=== PATIENT | female | born 1955 | race Caucasian/White ===

== ENCOUNTER → 2017-02-24 | Outpatient (CLI) | payer BC ==
--- NOTE | 2017-02-24 14:32 | KCIC ---
DATE: DATE: 02/24/2017 EXAM: MAMMO NAM SCREENING BILATERAL HISTORY: Screening. The history of left breast malignancy is noted COMPARISON: 01/30/2016 FINDINGS: Breast Density: SCATTERED The breast parenchyma shows scattered fibroglandular densities. Breast parenchyma level B. There is not been a significant change in the appearance of the breasts compared to the previous exam. Post therapeutic changes are noted associated with the left breast. IMPRESSION: Benign findings BI-RADS CATEGORY: 2 BENIGN FINDING(S) RECOMMENDED FOLLOW-UP: 12M 12 MONTH FOLLOW-UP PQRS compliance statement: Patient information was entered into a reminder system with a target due date 02/24/2018 for the next mammogram. Mammography is a sensitive method for finding small breast cancers, but it does not detect them all and is not a substitute for careful clinical examination. A negative mammogram does not negate a clinically suspicious finding and should not result in delay in biopsying a clinically suspicious abnormality. "Our facility is accredited by the [employer]ammography [employer]." RAJAN
== END | disposition home or self-care (01) ==
LOC: KCIC MAMMO 08:30
PROVIDERS: ATTEND Family Medicine
DX: Z12.31 Encounter for screening mammogram for malignant neoplasm of breast (principal); Z85.3 Personal history of malignant neoplasm of breast
CPT/HCPCS: 77063; G0202; 77067

== ENCOUNTER → 2018-03-31 | Outpatient (CLI) | payer BC ==
--- NOTE | 2018-03-31 12:28 | KCIC ---
Bilateral digital screening mammograms: Reason for examination: Routine screening. History of left breast cancer with lumpectomy and chemotherapy. Comparison is made to previous studies dated 02/24/2017 and 01/30/2016. Interpretation was made with the benefit of CAD. The skin and nipples show no abnormalities. No abnormal axillary lymph nodes are seen. The breast parenchyma shows scattered fibroglandular density. (Breast density: Category B.) There are postop changes in the left breast. There are no new dominant masses, suspicious calcifications or architectural distortions. Some benign calcifications are present. Impression: Postoperative changes in the left breast. No evidence of new or recurrent malignancy. Recommend routine screening. BI-RADS category 2: Benign "Our facility is accredited by the [employer] Mammography Program." This patient's information has been entered into a reminder system for the patient to be notified with the results of her examination and a target date for the next mammogram. Electronically signed by: Nabila Fajardo MD (03/31/2018 12:25 PM) [facility]
== END | disposition home or self-care (01) ==
LOC: KCIC MAMMO 07:53
PROVIDERS: ATTEND Family Medicine
DX: Z12.31 Encounter for screening mammogram for malignant neoplasm of breast (principal); Z85.3 Personal history of malignant neoplasm of breast; Z98.890 Other specified postprocedural states
CPT/HCPCS: 77067

== ENCOUNTER 2018-12-07 22:37 | Emergency (ER) | payer BC ==
[~2018-12-07] VITALS: Ht 154.9 cm; Wt 68.0 kg
--- NOTE | 2018-12-07 23:03 | PHYS DOC ---
Adult General Chief Complaint Chief Complaint: NAUSEA/VOMITING/DIARRHA HPI HPI Patient is a 63 year old female who presents to the ED today with multiple complaints. Patient states yesterday she had "bad lettuce" from [employer] she states she developed diarrhea and vomiting after that. She states she's continued to have diarrhea and vomiting until to day though it has slowed down this since this afternoon. She states she also accidentally took her husbands restless leg syndrome medicine Pramipexole last night. She is also complaining of a frontal headache rated at 8 out of 10 described as throbbing and constant since this morning worse with lights and noise she states she thinks it is a sinus headache but denies any nasal congestion, she states she has had similar headaches before but not as bad. She states her current symptoms are making her vertigo worse. Review of Systems Review of Systems Constitutional: Denies fever or chills [] Eyes: Denies change in visual acuity, redness, or eye pain [] HENT: Denies nasal congestion or sore throat [] Respiratory: Denies cough or shortness of breath [] Cardiovascular: No additional information not addressed in HPI [] GI: Reports nausea, vomiting,and diarrhea denies abdominal pain, : Denies dysuria or hematuria [] Musculoskeletal: Denies back pain or joint pain [] Integument: Denies rash or skin lesions [] Neurologic:Reports headache, denies focal weakness or sensory changes [] All other systems were reviewed and found to be within normal limits, except as documented in this note. Current Medications Current Medications Current Medications Medications (Trade) Dose Ordered Sig/Renata Start Time Stop Time Status Last Admin Dose Admin Dicyclomine HCl (Bentyl) 20 mg 1X ONCE 12/07/18 23:15 12/07/18 23:16 DC 12/07/18 23:33 20 MG Diphenhydramine HCl (Benadryl) 25 mg 1X ONCE 12/07/18 23:15 12/07/18 23:16 DC 12/07/18 23:33 25 MG Famotidine (Pepcid Vial) 20 mg 1X ONCE 12/07/18 23:15 12/07/18 23:16 DC 12/07/18 23:26 20 MG Info (CONTRAST GIVEN -- Rx MONITORING) 1 each PRN DAILY PRN 12/07/18 23:55 12/09/18 23:54 Iohexol (Omnipaque 300 Mg/ml) 75 ml 1X ONCE 12/07/18 23:55 12/07/18 23:56 DC 12/08/18 00:14 75 ML Meclizine HCl (Antivert) 25 mg 1X ONCE 12/07/18 23:15 12/07/18 23:16 DC 12/07/18 23:26 25 MG Methylprednisolone Sodium Succinate (SOLU-Medrol 125MG VIAL) 125 mg 1X ONCE 12/07/18 23:15 12/07/18 23:16 DC 12/07/18 23:31 125 MG Prochlorperazine Edisylate (Compazine) 10 mg 1X ONCE 12/07/18 23:15 12/07/18 23:16 DC 12/07/18 23:29 10 MG Sodium Chloride 1,000 ml @ 1,000 mls/hr 1X ONCE 12/07/18 23:15 12/08/18 00:14 DC 12/07/18 23:22 1,000 MLS/HR Allergies Allergies Allergies Coded Allergies Type Severity Reaction Last Updated Verified No Known Drug Allergies 12/07/18 No Physical Exam Physical Exam Constitutional: Well developed, well nourished, no acute distress, non-toxic appearance. [] HENT: Normocephalic, atraumatic, bilateral external ears normal, oropharynx moist, no oral exudates, nose normal. [] Eyes: PERRLA, EOMI, conjunctiva normal, no discharge. [] Neck: Normal range of motion, no tenderness, supple, no stridor. [] Cardiovascular:Heart rate regular rhythm, no murmur [] Lungs & Thorax: Bilateral breath sounds clear to auscultation [] Abdomen: Bowel sounds normal, soft, no tenderness, no masses, no pulsatile masses. [] Skin: Warm, dry, no erythema, no rash. [] Back: No tenderness, no CVA tenderness. [] Extremities: No tenderness, no cyanosis, no clubbing, ROM intact, no edema. [] Neurologic: Alert and oriented X 3, normal motor function, normal sensory function, no focal deficits noted. Cranial nerves II-XII intact. Psychologic: Affect normal, judgement normal, mood normal. [] Current Patient Data Vital Signs Vital Signs Date Time Temp Pulse Resp B/P (MAP) Pulse Ox O2 Delivery O2 Flow Rate FiO2 12/07/18 22:50 98.4 84 18 156/81 (106) 98 Room Air 98.4 Lab Values Laboratory Tests Test 12/07/18 23:10 White Blood Count 6.5 x10^3/uL (4.0-11.0) Red Blood Count 4.44 x10^6/uL (3.50-5.40) Hemoglobin 13.7 g/dL (12.0-15.5) Hematocrit 39.4 % (36.0-47.0) Mean Corpuscular Volume 89 fL (79-100) Mean Corpuscular Hemoglobin 31 pg (25-35) Mean Corpuscular Hemoglobin Concent 35 g/dL (31-37) Red Cell Distribution Width 14.1 % (11.5-14.5) Platelet Count 166 x10^3/uL (140-400) Neutrophils (%) (Auto) 83 % (31-73) H Lymphocytes (%) (Auto) 11 % (24-48) L Monocytes (%) (Auto) 6 % (0-9) Eosinophils (%) (Auto) 0 % (0-3) Basophils (%) (Auto) 1 % (0-3) Neutrophils # (Auto) 5.4 x10^3uL (1.8-7.7) Lymphocytes # (Auto) 0.7 x10^3/uL (1.0-4.8) L Monocytes # (Auto) 0.4 x10^3/uL (0.0-1.1) Eosinophils # (Auto) 0.0 x10^3/uL (0.0-0.7) Basophils # (Auto) 0.0 x10^3/uL (0.0-0.2) Sodium Level 138 mmol/L (136-145) Potassium Level 3.9 mmol/L (3.5-5.1) Chloride Level 101 mmol/L (98-107) Carbon Dioxide Level 25 mmol/L (21-32) Anion Gap 12 (6-14) Blood Urea Nitrogen 14 mg/dL (7-20) Creatinine 0.7 mg/dL (0.6-1.0) Estimated GFR (Cockcroft-Gault) 85.1 BUN/Creatinine Ratio 20 (6-20) Glucose Level 136 mg/dL (70-99) H Calcium Level 9.4 mg/dL (8.5-10.1) Magnesium Level 2.1 mg/dL (1.8-2.4) Total Bilirubin 0.5 mg/dL (0.2-1.0) Aspartate Amino Transferase (AST) 32 U/L (15-37) Alanine Aminotransferase (ALT) 30 U/L (14-59) Alkaline Phosphatase 73 U/L (46-116) Creatine Kinase 123 U/L (26-192) Creatine Kinase MB (Mass) 1.1 ng/mL (0.0-3.6) Creatine Kinase MB Relative Index 0.9 % (0-4) Troponin I Quantitative < 0.017 ng/mL (0.000-0.055) SH-Bed-D-Type Natriuretic Peptide 484 pg/mL (0-124) H Total Protein 7.8 g/dL (6.4-8.2) Albumin 3.6 g/dL (3.4-5.0) Albumin/Globulin Ratio 0.9 (1.0-1.7) L Lipase 186 U/L (73-393) Thyroid Stimulating Hormone (TSH) 0.400 uIU/mL (0.358-3.74) Laboratory Tests 12/07/18 23:10 Laboratory Tests 12/07/18 23:10 EKG EKG 23:[address] Kaylie burks sinus rhythm heart rate 66 no STEMI Radiology/Procedures Radiology/Procedures []PROCEDURE: CT ABD PELV W/ IV CONTRST ONLY EXAM: CT Abdomen and Pelvis with IV contrast CLINICAL HISTORY: Dizziness . COMPARISON: none TECHNIQUE: Helical CT of the abdomen and pelvis was performed following the administration of intravenous contrast. Axial, coronal and sagittal reformatted images were generated. PQRS compliance statement - One or more of the following individualized dose reduction techniques were utilized for this study: 1. Automated exposure control 2. Adjustment of the mA and/or kV according to patient size 3. Use of iterative reconstruction technique FINDINGS: Lower chest: Linear opacities in the medial middle lobe likely scarring/atelectasis. Abdomen and Pelvis: No focal liver lesion. There has been a cholecystectomy. No biliary ductal dilatation. Pancreas is unremarkable. Spleen is normal in appearance. Symmetric nephrograms. Bilateral extrarenal pelvis. No hydronephrosis or hydroureter. Bladder is unremarkable. No small or large bowel dilatation. No evidence for bowel obstruction. Bladder is unremarkable. There has been a hysterectomy. No abdominal pelvic ascites. No abdominal pelvic lymphadenopathy. Bones: Degenerative changes of spine are seen. IMPRESSION: There has been a cholecystectomy. No biliary ductal dilatation. No evidence for bowel obstruction. Electronically signed by: Antonio Crump MD (12/08/2018 12:36 AM) [facility] DICTATED and SIGNED BY: ANTONIO CRUMP MD DATE: 12/08/18 0036 PROCEDURE: PORTABLE CHEST 1V AP portable chest radiograph 12/07/2018 Clinical History: Dizziness. An AP erect portable digital radiograph of the chest was obtained. Surgical clips overlie the left axilla. The cardiac silhouette is mildly enlarged. The thoracic aorta is mildly tortuous. No acute pulmonary infiltrate is seen. No pleural effusion or pneumothorax is noted. Degenerative changes are seen involving the thoracic spine and both shoulders. IMPRESSION: No acute abnormality is seen. Electronically signed by: Abdirizak Becerra MD (12/07/2018 11:45 PM) [facility] DICTATED and SIGNED BY: ABDIRIZAK BECERRA MD DATE: 12/07/18 2345 PROCEDURE: CT HEAD WO CONTRAST EXAM: CT Head without IV contrast CLINICAL HISTORY: Dizziness COMPARISON: None. TECHNIQUE: Routine CT of the head without contrast. Soft tissues and bone windows were reviewed. PQRS compliance statement - One or more of the following individualized dose reduction techniques were utilized for this study: 1. Automated exposure control 2. Adjustment of the mA and/or kV according to patient size 3. Use of iterative reconstruction technique FINDINGS: There is no evidence of hemorrhage, mass or extra-axial fluid collection. Forte-white differentiation is maintained with no evidence of edema. There is no mass effect or shift of the intracranial structures. The ventricles, basilar cisterns and cortical sulci are normal in size and configuration for the patients stated age. The cerebellum and brainstem are unremarkable. The calvarium demonstrates no evidence of fracture or focal lesion. There is normal aeration of the visualized paranasal sinuses and mastoid air cells. The visualized portions of the orbits are normal. Atherosclerotic calcifications of the intracranial internal carotid arteries is seen. IMPRESSION: No evidence for acute intracranial process Electronically signed by: Antonio Crump MD (12/08/2018 12:26 AM) [facility] DICTATED and SIGNED BY: ANTONIO CRUMP MD DATE: 12/08/18 0026 Course & Med Decision Making Course & Med Decision Making Pertinent Labs and Imaging studies reviewed. (See chart for details) This is a 63-year-old female patient presenting to the ED today complaining of nausea, vomiting, diarrhea that began last night after having bad lettuce. Also complaining of a headache since this morning and accidentally taking her husba nds Pramipexole last night. Has hx of Vertigo EKG is negative. Labs are negative, CT of the head, abdomen and pelvic are negative. IV fluids given, meclizine, feeling better. D/c to home. F/u with PCP next week. Dragon Disclaimer Dragon Disclaimer This electronic medical record was generated, in whole or in part, using a voice recognition dictation system. Departure Departure Impression: Primary Impression: Headache Additional Impressions: Nausea & vomiting Diarrhea Disposition: HOME, SELF-CARE Condition: STABLE Referrals: DIOR HARDWICK MD (PCP) follow up next week Patient Instructions: Diarrhea, [id number], Headache, FAQs, Nausea and Vomiting, [id number] Additional Instructions: You were seen for headache, nausea, vomiting, diarrhea your work up was negative for any acute findings. Please push fluids. Follow up with your doctor next week. Scripts Ondansetron Hcl (ZOFRAN) 4 Mg Tablet 1 TAB PO Q6HRS, #20 TAB Prov: JHONATAN MEJIA APRN 12/08/18 Problem Qualifiers Primary Impression: Headache Headache type: unspecified Headache chronicity pattern: acute headache Intractability: not intractable Qualified Codes: R51 - Headache Additional Impressions: Nausea & vomiting Vomiting type: unspecified Vomiting Intractability: unspecified Qualified Codes: R11.2 - Nausea with vomiting, unspecified Diarrhea Diarrhea type: unspecified type Qualified Codes: R19.7 - Diarrhea, unspecified JHONATAN MEJIA APRN Dec 07, 2018 23:03
[2018-12-07] MEDS ORDERED: IV NORMAL SALINE 1000ML BAG 1,000 ML IV ONE (23:15)
[2018-12-07] MEDS ORDERED: diphenhydrAMINE HCL 25 MG CAPSULE PO ONE (23:15)
[2018-12-07] MEDS ORDERED: methylPREDNISolone SOD SUCC PF 125 MG/2 ML VIAL. IV ONE (23:15)
[2018-12-07] MEDS ORDERED: MECLIZINE HCL 12.5 MG TABLET. PO ONE (23:15)
[2018-12-07] MEDS ORDERED: FAMOTIDINE 20 MG/2 ML VIAL IVP ONE (23:15)
[2018-12-07] MEDS ORDERED: PROCHLORPERAZINE 10 MG/2 ML VIAL. IV ONE (23:15)
[2018-12-07] MEDS ORDERED: DICYCLOMINE HCL 10 MG CAPSULE PO ONE (23:15)
[2018-12-07 23:22] LABS: BASO % 1 % (0-3); EOS % 0 % (0-3); HEMATOCRIT 39.4 % (36.0-47.0); HEMOGLOBIN 13.7 g/dL (12.0-15.5); LYMPH # 0.7 x10^3/uL (1.0-4.8); LYMPH % 11 % (24-48); MEAN CORPUSCULAR HEMOGLOBIN 31 pg (25-35); MEAN CORPUSCULAR HGB CONC 35 g/dL (31-37); MEAN CORPUSCULAR VOLUME 89 fL (79-100); MONO # 0.4 x10^3/uL (0.0-1.1); MONO % 6 % (0-9); NEUT # 5.4 x10^3uL (1.8-7.7); NEUT % 83 % (31-73); PLATELET COUNT 166 x10^3/uL (140-400); RED BLOOD COUNT 4.44 x10^6/uL (3.50-5.40); RED CELL DISTRIBUTION WIDTH 14.1 % (11.5-14.5); WHITE BLOOD COUNT 6.5 x10^3/uL (4.0-11.0)
[2018-12-07 23:35] LABS: CALCIUM 9.4 mg/dL (8.5-10.1); CREATININE 0.7 mg/dL (0.6-1.0); GFR 85.1; POTASSIUM 3.9 mmol/L (3.5-5.1)
[2018-12-07 23:38] LABS: ALBUMIN 3.6 g/dL (3.4-5.0); ALBUMIN/GLOBULIN RATIO 0.9 (1.0-1.7); MAGNESIUM 2.1 mg/dL (1.8-2.4); TOTAL BILIRUBIN 0.5 mg/dL (0.2-1.0); TOTAL PROTEIN 7.8 g/dL (6.4-8.2)
--- NOTE | 2018-12-07 23:48 | RAD ---
AP portable chest radiograph 12/07/2018 Clinical History: Dizziness. An AP erect portable digital radiograph of the chest was obtained. Surgical clips overlie the left axilla. The cardiac silhouette is mildly enlarged. The thoracic aorta is mildly tortuous. No acute pulmonary infiltrate is seen. No pleural effusion or pneumothorax is noted. Degenerative changes are seen involving the thoracic spine and both shoulders. IMPRESSION: No acute abnormality is seen. Electronically signed by: Abdirizak Becerra MD (12/07/2018 11:45 PM) [facility]
[2018-12-07] MEDS ORDERED: CONTRAST GIVEN. MC PRN (23:55)
[2018-12-07] MEDS ORDERED: IOHEXOL 300 MG/ML 100ML VIAL. IV ONE (23:55)
--- NOTE | 2018-12-08 00:29 | RAD ---
EXAM: CT Head without IV contrast CLINICAL HISTORY: Dizziness COMPARISON: None. TECHNIQUE: Routine CT of the head without contrast. Soft tissues and bone windows were reviewed. PQRS compliance statement - One or more of the following individualized dose reduction techniques were utilized for this study: 1. Automated exposure control 2. Adjustment of the mA and/or kV according to patient size 3. Use of iterative reconstruction technique FINDINGS: There is no evidence of hemorrhage, mass or extra-axial fluid collection. Forte-white differentiation is maintained with no evidence of edema. There is no mass effect or shift of the intracranial structures. The ventricles, basilar cisterns and cortical sulci are normal in size and configuration for the patients stated age. The cerebellum and brainstem are unremarkable. The calvarium demonstrates no evidence of fracture or focal lesion. There is normal aeration of the visualized paranasal sinuses and mastoid air cells. The visualized portions of the orbits are normal. Atherosclerotic calcifications of the intracranial internal carotid arteries is seen. IMPRESSION: No evidence for acute intracranial process Electronically signed by: Antonio Franco MD (12/08/2018 12:26 AM) [facility]
--- NOTE | 2018-12-08 00:40 | RAD ---
EXAM: CT Abdomen and Pelvis with IV contrast CLINICAL HISTORY: Dizziness . COMPARISON: none TECHNIQUE: Helical CT of the abdomen and pelvis was performed following the administration of intravenous contrast. Axial, coronal and sagittal reformatted images were generated. PQRS compliance statement - One or more of the following individualized dose reduction techniques were utilized for this study: 1. Automated exposure control 2. Adjustment of the mA and/or kV according to patient size 3. Use of iterative reconstruction technique FINDINGS: Lower chest: Linear opacities in the medial middle lobe likely scarring/atelectasis. Abdomen and Pelvis: No focal liver lesion. There has been a cholecystectomy. No biliary ductal dilatation. Pancreas is unremarkable. Spleen is normal in appearance. Symmetric nephrograms. Bilateral extrarenal pelvis. No hydronephrosis or hydroureter. Bladder is unremarkable. No small or large bowel dilatation. No evidence for bowel obstruction. Bladder is unremarkable. There has been a hysterectomy. No abdominal pelvic ascites. No abdominal pelvic lymphadenopathy. Bones: Degenerative changes of spine are seen. IMPRESSION: There has been a cholecystectomy. No biliary ductal dilatation. No evidence for bowel obstruction. Electronically signed by: Anotnio Franco MD (12/08/2018 12:36 AM) [facility]
[2018-12-08 00:45] VITALS: BP 141/65
[2018-12-08] MEDS ORDERED: ONDA4TAB7 PO (00:53)
[2018-12-08] MEDS ORDERED: IOHEXOL 300 MG/ML 100ML VIAL. ONE (05:31)
--- NOTE | 2018-12-08 06:51 | EKG ---
[facility] [address] [place] [address] Test Date: 2018-12-07 Test Time: 23:16:27 Pat Name: MARK VALVERDE Department: Room: Gender: F Development Scientist: : 1955 Requested By: JHONATAN MEJIA Order Number: [id number] Reading MD: Measurements Intervals [place] Rate: 66 P: 32 WV: 144 QRS: -26 QRSD: 96 T: 30 QT: 408 QTc: 429 Interpretive Statements SINUS RHYTHM LEFTWARD AXIS NO SPECIFIC ECG ABNORMALITIES RI6.01 No previous ECG available for comparison
== END 2018-12-08 01:00 | disposition home or self-care (01) ==
LOC: ER 22:37
DX: R51 Headache (principal); R11.2 Nausea with vomiting, unspecified; R19.7 Diarrhea, unspecified
CPT/HCPCS: 36415; 70450; 71045; 74177; 80053; 82553; 83690; 83735; 83880; 84443; 84484; 85025; 93005; 96361; 96374; 96375; 99285; J0780; J2930; J3490; J7030; J8597; Q0163; Q9967

== ENCOUNTER → 2019-04-06 | Outpatient (CLI) | payer BC ==
[~2019-04-06] MED LIST: ONDA4TAB7 PO
--- NOTE | 2019-04-06 18:49 | KCIC ---
Bilateral digital screening mammograms: Reason for examination: Routine screening. History of left breast cancer with lumpectomy. Comparison is made to previous studies dated back to 01/30/2016. Interpretation was made with the benefit of CAD. The skin and nipples show no abnormalities. No abnormal axillary lymph nodes are seen. The breast parenchyma shows scattered fibroglandular density. (Breast density: Category B.) There are postop changes in the left breast and axilla. There are no new dominant masses, suspicious calcifications or architectural distortions. Some benign calcifications are present. Impression: Postop changes in the left breast and axilla. No evidence of new or recurrent malignancy. Recommend routine screening. BI-RADS category 2: Benign. "Our facility is accredited by the [employer] Mammography Program." This patient's information has been entered into a reminder system for the patient to be notified with the results of her examination and a target date for the next mammogram. Electronically signed by: Nabila Fajardo MD (04/06/2019 6:46 PM) [facility]
== END | disposition home or self-care (01) ==
LOC: KCIC MAMMO 07:52
PROVIDERS: ATTEND Family Medicine
DX: Z12.31 Encounter for screening mammogram for malignant neoplasm of breast (principal); N64.89 Other specified disorders of breast; Z98.890 Other specified postprocedural states; Z85.3 Personal history of malignant neoplasm of breast; Z92.21 Personal history of antineoplastic chemotherapy
CPT/HCPCS: 77067

== ENCOUNTER → 2019-04-13 | Day surgery (SDC) | payer BC ==
[~2019-04-13] MED LIST changes: +ALEN70TA6 PO; +BUDE10.2 IH; +FEXO180T81 PO; +HYDROmorphone 2 MG/ML VIAL IV PRN; +IV RINGERS,LACTATED 1000ML 1,000 ML IV SCH; +LANS30CA PO; +MONT10TA49 PO; +MORPHINE SULFATE 2 MG/ML VIAL. IV PRN; +ONDANSETRON PF 4 MG/2 ML VIAL. IV PRN; +PROCHLORPERAZINE 10 MG/2 ML VIAL. IV PRN; +PROPOFOL 20 ML IV ONE; +SIMV40TA18 PO; +fentaNYL PF VIAL 100 MCG/2 ML VIAL IV PRN
--- NOTE | 2019-04-13 07:44 | HP ---
ADMIT DATE: 04/13/2019 REFERRING PHYSICIAN: Parisa Burns M.D. REASON FOR CONSULTATION: Colorectal screening. HISTORY OF PRESENT ILLNESS: A 63-year-old female with past medical history significant for breast cancer, appendectomy, cholecystectomy, hysterectomy as well as gastroesophageal reflux disease, osteoporosis and asthma, seen for screening colon. Bowel habits are regular without diarrhea or constipation. There has been no melena and/or hematochezia. Weight and appetite are stable. Last colonoscopy 10 years ago was unrevealing for polyps or malignancy. She is otherwise without additional complaints. PAST MEDICAL HISTORY: Status post appendectomy; breast cancer with chemoradiation 20 years ago, in remission; status post cholecystectomy; hysterectomy; osteoporosis; asthma and GERD. ALLERGIES: None. MEDICATIONS: Include Fosamax, budesonide, Gila, Prevacid, montelukast, Zofran, and simvastatin. FAMILY AND SOCIAL HISTORY: Does not drink or smoke. Family history is unknown as she is adopted. REVIEW OF SYSTEMS: Per records. PHYSICAL EXAMINATION: GENERAL: Reveals a well-nourished, well-developed female who is alert, cooperative, in no acute distress. VITAL SIGNS: Temperature 97.5, pulse 80, respirations 18. LUNGS: Clear. CARDIOVASCULAR: Reveals an S1, S2 without S3, S4 or appreciable murmur. ABDOMEN: Reveals a soft abdomen, normal bowel sounds, without appreciable hepatosplenomegaly. EXTREMITIES: Reveal no cyanosis, clubbing or edema. IMPRESSION: Colorectal screening is warranted at this time. Risks and benefits of procedure including risk of hemorrhage and perforation have been discussed. The patient is willing to proceed. ROBERT ANNE MD DR: GLEN/breana JOB#: [id number] / [id number]
[2019-04-13 08:05] VITALS: BP 134/80
== END ==
LOC: SURG 06:00
PROVIDERS: ATTEND Internal Medicine Gastroenterology
DX: Z12.11 Encounter for screening for malignant neoplasm of colon (principal); K57.30 Diverticulosis of large intestine without perforation or abscess without bleeding; K64.0 First degree hemorrhoids; K21.9 Gastro-esophageal reflux disease without esophagitis; J45.909 Unspecified asthma, uncomplicated; Z85.3 Personal history of malignant neoplasm of breast; Z90.49 Acquired absence of other specified parts of digestive tract; Z90.710 Acquired absence of both cervix and uterus; Z86.010 Personal history of colon polyps; Z87.39 Personal history of other diseases of the musculoskeletal system and connective tissue
CPT/HCPCS: 45378; J2704